=== PATIENT | male | born 1970 | race Caucasian/White ===

== ENCOUNTER 2020-08-17 17:28 | Emergency (ER) | payer BC, OTHER ==
[~2020-08-17 17:28] MED LIST: MEDROL DOSEPAK 24 MG PO; Voltaren Gel 1 % TOP
[2020-08-17 19:21] LABS: HEMOGLOBIN 15.7 gm/dl (14.0-17.5); RED BLOOD COUNT 5.52 M/UL (4.20-5.50); WHITE BLOOD COUNT 7.3 K/UL (4.5-11.0)
[2020-08-17 20:07] LABS: BUN/CREATININE RATIO 21 (0-10)
[2020-08-17] MEDS ORDERED: IBUPROFEN800 MG PO (20:16)
[2020-08-17] MEDS ORDERED: PROAIR DIGIHAL90 MCG INH (20:16)
== END 2020-08-17 21:00 | disposition home or self-care (01) ==
LOC: ER1 17:28
PROVIDERS: Family Medicine
DX: U07.1 COVID-19 (principal); E11.9 Type 2 diabetes mellitus without complications; I10 Essential (primary) hypertension
CPT/HCPCS: 71045; 80053; 83615; 85025; 86140; 99285; M0239